=== PATIENT | female | born 2000 | race Caucasian/White ===

== ENCOUNTER 2022-12-28 07:19 | Emergency (ER) | payer BC ==
[~2022-12-28] VITALS: Ht 175.3 cm; Wt 82.1 kg
[2022-12-28 07:44] VITALS: BP 122/70; PULSE 94; RESP 18; TEMP 97.6; O2SAT 97
[2022-12-28] MEDS ORDERED: IBUPROFEN 600 MG TAB PO ONE (08:10)
[2022-12-28] MEDS ORDERED: PRED20TA5 PO (10:19)
[2022-12-28] MEDS ORDERED: BENZ200C4 PO (10:19)
[2022-12-28 10:28] VITALS: BP 124/75; PULSE 75; RESP 16; TEMP 98.5; O2SAT 98
== END 2022-12-28 10:27 | disposition home or self-care (01) ==
LOC: MED 07:19
DX: J02.9 Acute pharyngitis, unspecified (principal); R13.10 Dysphagia, unspecified; H92.01 Otalgia, right ear; Z20.822 Contact with and (suspected) exposure to COVID-19
CPT/HCPCS: 81025; 87081; 99283